=== PATIENT | female | born 1945 | race Caucasian/White ===

== ENCOUNTER 2016-12-02 08:11 | Day surgery (SDC) ==
[2016-12-02] MEDS ORDERED: VERSED ONE (09:11)
[2016-12-02] MEDS ORDERED: DIPRIVAN 20 ML VIAL IVP ONE (09:11)
[2016-12-02 10:38] VITALS: BP 136/70; TEMP 97
--- NOTE | 2016-12-02 13:36 | OP ---
PROCEDURE: COLONOSCOPY TO THE CECUM WITH SNARE POLYPECTOMY. ENDOSCOPIST: Jonathan GASTON M.D. INDICATION: HISTORY OF SERRATED ADENOMA STATUS POST PIECEMEAL RESECTION, LAST COLONOSCOPY SIX MONTHS PRIOR TO THIS EVALUATION. INSTRUMENT: PCFH-190. MEDICATION: PER ANESTHESIA. PROCEDURE: The patient was positioned for colonoscopy. The digital rectal exam was negative. The colonoscope was inserted through the anus and advanced under direct vision to the cecum. The cecum was identified using the ileocecal valve and the appendiceal orifice as landmarks. The scope was slowly withdrawn through an adequately prepped colon. There was residual polyp noted at the prior polypectomy site. We removed this in two separate pieces. We then used the tip of the snare to cauterize the surrounding area. Diverticula was noted throughout the left colon. Retroflex exam was otherwise normal. Withdrawal time 10 minutes and 31 seconds. PLAN: 1. Review pathology. 2. Repeat colonoscopy in one year. CC: DR. PATRICIO RUSSELL
== END 2016-12-02 10:26 | disposition home or self-care (01) ==
LOC: SURG 08:11
PROVIDERS: ATTEND Internal Medicine Gastroenterology
DX: Z09 Encounter for follow-up examination after completed treatment for conditions other than malignant neoplasm (principal); Z86.010 Personal history of colon polyps; D12.2 Benign neoplasm of ascending colon; K57.30 Diverticulosis of large intestine without perforation or abscess without bleeding

== ENCOUNTER 2018-12-09 12:20 | Outpatient (CLI) ==
--- NOTE | 2018-12-09 13:50 | DI ---
EXAM: Two views of the left knee. History: Left knee pain. Comparison: Left knee radiograph 12/20/2010 Findings: No acute fracture or dislocation. Mild to moderate tricompartmental joint space narrowing with marginal sclerosis and osteophyte formation has progressed compared to the prior study. No abn ormal calcifications or radiopaque foreign bodies. Impression: 1. No acute osseous abnormality. 2. 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
== END 2018-12-09 12:21 | disposition home or self-care (01) ==
LOC: RAD 12:20
PROVIDERS: ATTEND Internal Medicine
DX: M25.562 Pain in left knee (principal)